=== PATIENT | male | born 1945 | race Caucasian/White ===

== ENCOUNTER → 2020-07-11 10:39 | Outpatient (CLI) | payer MEDICARE, OTHER, SELFPAY ==
--- NOTE | ~2020-07-11 | XR_ITS ---
EXAMINATION: XR knee RT 2V DATE: 07/11/2020 11:41 INDICATION: Right knee osteoarthritis. TECHNIQUE: 2 views of right knee were obtained. COMPARISON: None. FINDINGS: There is valgus angulation at the knee. No fracture. There is severe osteoarthritis of late ral compartment and mild osteoarthritis of medial and patellofemoral compartments. No knee joint effu orion. IMPRESSION: 1. Severe right knee osteoarthritis. Reviewed, dictated and finalized at location B.
== END ==
PROVIDERS: Visit Provider Nurse Practitioner Family
DX: M17.11 Unilateral primary osteoarthritis, right knee (principal)
CPT/HCPCS: 73560

== ENCOUNTER → 2021-12-25 10:50 | Outpatient (CLI) | payer MEDICARE, OTHER, SELFPAY ==
--- NOTE | ~2021-12-25 | XR_ITS ---
EXAMINATION: XR knee LT 2V DATE: 12/25/2021 11:57 INDICATION: Left knee pain. TECHNIQUE: 2 views of left knee standing were obtained. COMPARISON: Left knee radiographs 06/17/2010 FINDINGS: Bone alignment is normal. No fracture. There is moderate osteoarthritis of medial compartme nt and mild osteoarthritis of lateral and patellofemoral compartments. No knee joint effusion. IMPRESSION: 1. Moderate left knee osteoarthritis. Reviewed, dictated and finalized at location E. TER MANAGER
== END ==
PROVIDERS: Visit Provider Nurse Practitioner Family
DX: M17.12 Unilateral primary osteoarthritis, left knee (principal)
CPT/HCPCS: 73560